=== PATIENT | male | born 1960 | race Asian ===

== ENCOUNTER 2018-10-17 19:54 | Inpatient (IN) | payer OTHER ==
[~2018-10-17] VITALS: Ht 170.2 cm; Wt 62.6 kg
[2018-10-17 20:00] VITALS: BP 135/78
--- NOTE | 2018-10-17 20:04 | NUR ---
PT TRIAGED AND SENT TO ER LOBBY. VSS
[2018-10-17] MEDS ORDERED: ACETAMINOPHEN EXTRA STRENGTH 500 MG TAB PO ONE (20:10)
--- NOTE | 2018-10-17 21:02 | NUR ---
PT AMBULATED TO BED 12
--- NOTE | 2018-10-17 21:20 | NUR ---
PT BIB SON C/O LEFT HAND PAIN AND SWELLING. PT STATED THAT HE WAS CLEANING A TILAPIA FISH YESTERDAY AND THE BONE PUNCTURED HAND; PT STATES TO "FEELING LIKE HE HAD A FEVER AND SWELLING GOT WORSE'". SWELLING, REDNESS AND WARMTH NOTED, NO DISCHARGE OR DEFORMITIES NOTED. REDIAL PULSES STRONG AND EQUAL BILATERALLY. DENIES N/V/D, CP, SOB. BREATHING UNLABORED, PATENT AIRWAY. PT IN GOWN IN BED; BED IN LOWER LOCKED POSITION, BEDRAILS UP X1. ER MADE AWARE OF PT. PMH: DENIES RX: DENIES
--- NOTE | 2018-10-17 21:45 | NUR ---
DR. SCHERER AT BEDSIDE.
[2018-10-17] MEDS ORDERED: VANCOMYCIN 1,000 MG in DEXTROSE 5% 250 ML IV ONE (21:50)
[2018-10-17] MEDS ORDERED: VANCOMYCIN 1,000 MG VIAL ONE (22:03)
[2018-10-17] MEDS ORDERED: cefTRIAXone 1,000 MG VIAL ONE (22:03)
--- NOTE | 2018-10-17 22:06 | NUR ---
LAB AT BEDSIDE.
[2018-10-17 22:19] LABS: BASOPHILS % (AUTO) 0.2 % (0.0-2.0); EOSINOPHILS # (AUTO) 0.1 K/uL (0-0.4); EOSINOPHILS % (AUTO) 0.5 % (0.0-4.0); HEMATOCRIT 41.3 % (36-52); HEMOGLOBIN 12.7 g/dL (12.0-18.0); LYMPHOCYTES # (AUTO) 1.9 K/uL (2.0-11.5); LYMPHOCYTES % (AUTO) 11.3 % (20.5-51.1); MEAN CORPUSCULAR HEMOGLOBIN 25 pg (27-31); MEAN CORPUSCULAR HGB CONC 31 g/dL (33-37); MEAN CORPUSCULAR VOLUME 80.7 fL (80-94); MONOCYTES # (AUTO) 1.9 K/uL (0.8-1.0); MONOCYTES % (AUTO) 11.4 % (1.7-9.3); NEUTROPHILS # (AUTO) 12.8 K/uL (1.8-7.7); NEUTROPHILS % (AUTO) 76.6 % (42.2-75.2); PLATELET COUNT (AUTO) 263 K/uL (140-450); RED BLOOD CELL COUNT(AUTO) 5.12 MIL/uL (4.20-6.10); RED CELL DISTRIBUTION WIDTH 13.8 % (11.6-13.7)
[2018-10-17 22:31] LABS: ANION GAP 5.9 (8-16); CARBON DIOXIDE 31.3 mmol/L (21-32); CREATININE 0.9 mg/dL (0.7-1.3); POTASSIUM 4.2 mmol/L (3.5-5.1)
[2018-10-17 22:34] LABS: ALBUMIN 3.7 g/dL (3.4-5.0); TOTAL BILIRUBIN 0.5 mg/dL (0.0-1.0)
[2018-10-17 22:52] LABS: WHITE BLOOD COUNT (AUTO) 16.7 K/uL (4.8-10.8)
[2018-10-17] MEDS ORDERED: MORPHINE SULFATE 4 MG/ML SYR IVP PRN ×2 (23:10)
[2018-10-17] MEDS ORDERED: ALBUTEROL 0.083% 2.5 MG/3 ML NEBU INH PRN (23:10)
[2018-10-17] MEDS ORDERED: LORazepam 2 MG/ML VIAL IVP PRN (23:10)
[2018-10-17] MEDS ORDERED: VANCOMYCIN PER PHARMACY MC PRN (23:10)
--- NOTE | 2018-10-18 00:35 | NUR ---
Patient will be admitted to care of Dr. Gallagher. Admited to ICU. Will go to room 3. Belongings list completed. Report to Jeanne SIDDIQUI.
[2018-10-18 00:40] VITALS: BP 128/84
[2018-10-18] MEDS ORDERED: AMPICILLIN/SULBACTAM 3 GM VIAL ONE (00:45)
--- NOTE | 2018-10-18 00:45 | NUR ---
PATIENT TRANSFERRED FROM ER TO ICU VIA W/C WITH ASSISTANCE. PATIENT AAO X 4, FRISIAN SPEAKING ONLY, UNDERSTAND SOME TAMAZIGHT. ON ROOM AIR WITH O2 SAT ABOVE 93%, BILATERAL LUNGS SOUND CLEAR. S1, S2 HEARD. NO FEVER. NO ACUTE DISTRESS NOTED. VSS. ACTIVE BOWEL SOUND FROM ALL 4 QUADS. ABLE TO MOVE ALL EX'S WITH STRONG MOVEMENT. SKIN INTACT. CELLULITIS TO LEFT HAND WITH REDNESS AND SWELLING. WARM TO TOUCH. HOB ELEVATED, BED IN LOW POSITION. CALL LIGHT WITHIN REACH. WILL CONTINUE TO MONITOR.
[2018-10-18] MEDS: AMPICILLIN/SULBACTAM 3 GM in NACL 0.9% 100 ML IV SCH ×4 (00:52→18:35)
--- NOTE | 2018-10-18 01:00 | NUR ---
ADMINISTERED IV ABX ORDERED. NO REACTION NOTED. SPOKE WITH SON; THEE HOLT/ [phone]. NOTIFIED ADMISSION. UNKNOWN FOR IMMUNIZATION STATUS. SON WILL COME IN THE MORNING. NEED TO F/U.
--- NOTE | 2018-10-18 03:10 | NUR ---
PATIENT IN ASLEEP, AROUSABLE TO NAME. NO ACUTE DISTRESS NOTED. PATIENT ABLE TO CHANGE POSITION HIMSELF. WILL CONTINUE TO MONITOR.
[2018-10-18 04:00] VITALS: BP 101/71
--- NOTE | 2018-10-18 05:05 | NUR ---
ADMINISTERED IV ABX ORDERED. NO ACUTE DISTRESS NOTED. DENIES PAIN AT THIS TIME. VSS. WILL CONTINUE TO MONITOR.
[2018-10-18 05:50] LABS: BASOPHILS % (AUTO) 0.1 % (0.0-2.0); EOSINOPHILS # (AUTO) 0.1 K/uL (0-0.4); EOSINOPHILS % (AUTO) 0.9 % (0.0-4.0); HEMATOCRIT 39.4 % (36-52); HEMOGLOBIN 12.5 g/dL (12.0-18.0); LYMPHOCYTES # (AUTO) 1.7 K/uL (2.0-11.5); LYMPHOCYTES % (AUTO) 11.8 % (20.5-51.1); MEAN CORPUSCULAR HEMOGLOBIN 25 pg (27-31); MEAN CORPUSCULAR HGB CONC 32 g/dL (33-37); MEAN CORPUSCULAR VOLUME 79.6 fL (80-94); MONOCYTES # (AUTO) 1.8 K/uL (0.8-1.0); MONOCYTES % (AUTO) 12.2 % (1.7-9.3); PLATELET COUNT (AUTO) 244 K/uL (140-450); RED BLOOD CELL COUNT(AUTO) 4.95 MIL/uL (4.20-6.10); RED CELL DISTRIBUTION WIDTH 13.9 % (11.6-13.7); WHITE BLOOD COUNT (AUTO) 14.7 K/uL (4.8-10.8)
[2018-10-18 06:49] LABS: ALBUMIN 3.3 g/dL (3.4-5.0); ANION GAP 9.2 (8-16); CARBON DIOXIDE 29.6 mmol/L (21-32); CREATININE 0.8 mg/dL (0.7-1.3); MAGNESIUM 2.1 mg/dL (1.8-2.4); PHOSPHORUS 3.1 mg/dL (2.5-4.9); POTASSIUM 3.8 mmol/L (3.5-5.1); TOTAL BILIRUBIN 0.6 mg/dL (0.0-1.0)
--- NOTE | 2018-10-18 07:35 | NUR ---
RECEIVED PT FROM ICU IN STABLE CONDITION.A&OX4.HAS EDEMA AND REDNESS ON LT.HAND.SL PATENT.ORIENTED TO ROOM.CALL SYSTEM EXPLAINED AND IN REACH.REPORT GIVRN TO JANEEN URIAS RN.PT DENIED ANY PAIN OR DISCOMFORT.
--- NOTE | 2018-10-18 07:36 | NUR ---
RECEIVED REPORT FROM CHARGE NURSE GRIS. PT TRANSFERRED FROM ICU TO MS. HAS SWOLLEN LFT HAND ON THE PALM FROM STICKING OF FISH BONE WHILE CLEANING FISH. PT SPEAKS CROATIAN ONLY. HAS RT FA 22 G, SALINE LOCK. NO SIGN OF DISTRESS. CALL LIGHT WITHIN REACH. INTRODUCED SELF AND UPDATED BOARD. INFORMED TO USE CALL LIGHT FOR ANY HELP. WILL CONTINUE TO MONITOR PT.
[2018-10-18 08:00] VITALS: BP 124/70
--- NOTE | 2018-10-18 08:24 | NUR ---
PATIENT HAS BEEN SCREENED AND CATEGORIZED LOW NUTRITION RISK. PATIENT WILL BE SEEN WITHIN 7 DAYS OF ADMISSION. 10/24/[address]
--- NOTE | 2018-10-18 10:15 | NUR ---
MD AT PTS BEDSIDE. TALKED TO SON-IN LAW CARISA REGARDING THE PROCEDURE. PT OKAY WITH IT. DR SIGNED THE SIGNED AND PT SIGNED THE CONSENT PAPER. NO QUESTION FOR THE PT. WILL CONTINUE TO MONITOR PT.
[2018-10-18] MEDS ORDERED: DOXYCYCLINE 100 MG in DEXTROSE 5% 100 ML IV SCH (10:19)
[2018-10-18] MEDS: VANCOMYCIN 1GM/DEXT 5% PREMIX 200 ML IV SCH ×2 (11:55→23:36)
--- NOTE | 2018-10-18 12:18 | NUR ---
ADMINISTERED MEDS TO PT ORDERED. DENIES ANY PAIN AT THIS TIME. NO SIGN OF DISTRESS NOTED. CALL LIGHT WITHIN REACH. INFORMED PT TO USE CALL LIGHT FOR ANY HELP. WILL CONTINUE TO MONITOR PT.
--- NOTE | 2018-10-18 14:30 | NUR ---
CHECKED ON PT, LYING ON HIS BED COMFORTABLY. PT INFORMED THAT WILL GO TO RADIOLOGY UNIT TO DO CT OF UPPER EXTREMITY WITH CONTRAST IV FORM. VERBALIZED UNDERSTANDING. NO SIGN OF DISTRESSES NOTED. ALL SAFETY MEASURE IN -PLACE. WILL CONTINUE TO MONITOR PT.
[2018-10-18 16:00] VITALS: BP 129/78
--- NOTE | 2018-10-18 16:30 | NUR ---
CALLED CT , INFORMED THAT PT IS NPO, HAS BEEN UNHOOKED FORM IV , READY FOR THE CT TEST. MUFFLER MECHANIC TO GET THE PT SOON HE GETS OFF FROM ER. NO SIGN OF DISTRESS NOTED. WILL CONTINUE TO MONITOR PT.
--- NOTE | 2018-10-18 19:21 | NUR ---
ENDORSED PT TO PM NURSE AT BEDSIDE. PT IN STABLE CONDITION.
--- NOTE | 2018-10-18 19:22 | NUR ---
RECEIVED FROM AM RN IN BED AWAKE AND ALERT. NO SOB. CALL LIGHT WITH IN REACH. CARE PLANS FOR THE NIGHT DISCUSSED WITH HIM. DENIES PAIN AT THIS TIME.
[2018-10-18] MEDS: DOXYCYCLINE 100 MG in DEXTROSE 5% 100 ML IV SCH (21:38)
[2018-10-18] MEDS ORDERED: CIPROFLOXACIN 250 MG TAB PO SCH (22:00)
--- NOTE | 2018-10-18 22:00 | NUR ---
PT. AWAKE AND ALERT AT THIS TIME TALKING TO FAMILY ON THE CELL PHONE. ENCOURAGED TO REST AND SLEEP. PT. DENIES PAIN AT THIS TIME. ABLE TO MOVE SELF. INDEPENDENT. ABLE TO USE CALL LIGHT FOR HELP. IVF SITE INFILTRATED. TIP INTACT. COVERED WITH BAND AID. RE-INSERTED IVF TO RIGHT HAND #22. GOOD BLOOD RETURN.
[2018-10-19] VITALS: BP_SYST 11; BP_SYST 117; BP_DIAS 78
--- NOTE | 2018-10-19 | NUR ---
SLEEPING. NO RESTLESSNESS NOTED. CALL LIGHT WITH IN REACH. A/O X 4. ROM X 4.
--- NOTE | 2018-10-19 02:00 | NUR ---
SLEEPING WELL. CALL LIGHT WITH IN REACH.
--- NOTE | 2018-10-19 04:00 | NUR ---
WOKE UP AND REQUESTED TO HAVE URINAL EMPTIED. DENIES PAIN. GOOD AFFECT. CALL LIGHT WITH IN REACH. NEW IVF SITE TO RIGHT HAND WITH GOOD BLOOD RETURN.
--- NOTE | 2018-10-19 07:20 | NUR ---
RECEIVED REPORT FROM PM NURSE AT BEDSIDE . PT LYING ON HIS BED. PT HAS22G IV SITE ON RT WRIST 22G. IVF INFUSING WELL. NO SIGN OF DISTRESS NOTED. CALL LIGHT WITHIN PT REACH. BED AT LOWER POSITION. INFORMED PT TO USE CALL LIGHT FOR ANY HELP. VERBALIZED UNDERSTANDING. WILL CONTINUE TO MONITOR PT.
--- NOTE | 2018-10-19 07:25 | NUR ---
ENDORSED TO THE NEXT RN FOR CONTINUITY OF CARE. AWAKE AND ALERT. NO COMPLAINTS DONE. SMILING. SLEPT WELL THIS SHIFT.
[2018-10-19 07:49] VITALS: BP 119/73
[2018-10-19] MEDS: CIPROFLOXACIN 250 MG TAB PO SCH ×2 (08:37→21:10)
[2018-10-19] MEDS: DOXYCYCLINE 100 MG in DEXTROSE 5% 100 ML IV SCH ×2 (08:37→21:10)
--- NOTE | 2018-10-19 08:46 | NUR ---
ADMINISTERED MEDS TO PA ORDERED. TOLERATED WELL. NO SIGN OF DISTRESS NOTED. ALL SAFETY MEASURE IN PLACE. WILL CONTINUE TO MONITOR PT.
--- NOTE | 2018-10-19 10:18 | NUR ---
CM NOTE PER MANDI OF [facility] PH# [phone], THE PATIENT HAS BEEN SEEING DR. DALE INSTEAD OF DR. ADAN. PER MANDI, THE PATIENT IS SCHEDULED FOR OUTPATIENT FOLLOW UP APPOINTMENT WITH DR. DALE ON OCTOBER 26, 2018, 11:00 AM, AT THE CLINIC AT [address] [facility] [place] [id number]. I GAVE THE PATIENT A COPY OF HIS OUTPATIENT FOLLOW UP SCHEDULE.
[2018-10-19] MEDS: VANCOMYCIN 1GM/DEXT 5% PREMIX 200 ML IV SCH ×2 (11:15→23:39)
--- NOTE | 2018-10-19 11:21 | NUR ---
ADMINISTERED MEDS TO PT. TOLERATED WELL. NO SIGN OF DISTRESS NOTED. CALL LIGHT WITHIN REACH. WILL CONTINUE TO MONITOR PT.
--- NOTE | 2018-10-19 14:30 | NUR ---
CHECKED ON PT. LYING IN HIS BED COMFORTABLY. NO SIGN OF DISTRESS NOTED. DENIES ANY PAIN. CALL LIGHT WITHIN PTS REACH. WILL CONTINUE TO MONITOR PT.
[2018-10-19 16:00] VITALS: BP 129/82
--- NOTE | 2018-10-19 17:00 | NUR ---
CHECKED ON PT. LYING ON HIS BED COMFORTABLY. NO SIG OF DISTRESS NOTED. CALLED SON TO FOLLOW UP TO GET UPDATE IF PT HAS RECEIVED FLU SHOT AND PNA VACCINE. LEFT VOICE MAIL. ALL SAEFTY MEASURE IN PLACE. WILL CONTINUE TO MONITOR PT.
--- NOTE | 2018-10-19 19:15 | NUR ---
ENDORSED PT TO PM NURSE AT BEDSIDE. PT IN STABLE CONDITION.
--- NOTE | 2018-10-19 19:30 | NUR ---
RECEIVED FROM AM RN IN BED AWAKE AND SMILING. DENIES PAIN. CALL LIGHT WITH IN REACH. NO SOB. IVF SITE TO RIGHT HAND #22 INTACT AND NO INFILTRATION. NO COMPLAINTS DONE. DX. LEFT HAND CELLULITIS.
--- NOTE | 2018-10-19 22:35 | NUR ---
PT. STILL AWAKE AND TALKING TO SOMEONE ON THE PHONE. SMILING. NO COMPLAINTS OF PAIN AT THIS TIME. CALL LIGHT WITH IN REACH.
[2018-10-19 23:58] VITALS: BP 142/96
--- NOTE | 2018-10-20 | NUR ---
VITAL SIGNS TAKEN. AWAKE AND ALERT. PT. URINATED IN URINAL. NO PAIN COMPLAINTS. IVF SITE IN PLACE WITH GOOD BLOOD RETURN. CALL LIGHT WITH IN REACH.
--- NOTE | 2018-10-20 03:00 | NUR ---
SLEEPING WELL. NO COMPLAINTS.
--- NOTE | 2018-10-20 06:46 | NUR ---
PT. AWAKE AND WANTED TO HAVE IVF TO LEFT HAND 22 TAKEN OUT. PER PT. IT HURTS. RECHECKED IVF SITE AND ABLE TO DRAW OUT GOOD BLOOD RETURN. STILL REFUSED TO LEAVE IT IN AND REQUESTED TO HAVE IT TAKEN OUT. STATED THAT HE MIGHT GO HOME TODAY AND DO NOT NEED THE RE-INSERTION OF A NEW ONE. EXPLAINED PROS AND CONS OF TAKING IT OUT. EXPLAINED HE STILL HAVE IV ABT. USED [employer]BONATION TESTER FOR [employer] (DOYLE) # [id number]. PT. ALSO REFUSED TO HAVE PNA VACCINE AND FLU VACCINE. PT. A/O X 4. WILL ENDORSE TO AM RN FOR CONTINUITY OF CARE.
[2018-10-20 06:50] LABS: ALBUMIN 3.3 g/dL (3.4-5.0); ANION GAP 15.1 (8-16); CARBON DIOXIDE 25.7 mmol/L (21-32); CREATININE 0.8 mg/dL (0.7-1.3); POTASSIUM 3.8 mmol/L (3.5-5.1); TOTAL BILIRUBIN 0.3 mg/dL (0.0-1.0)
[2018-10-20 06:51] LABS: RED BLOOD CELL COUNT(AUTO) 5.31 MIL/uL (4.20-6.10); WHITE BLOOD COUNT (AUTO) 9.7 K/uL (4.8-10.8)
[2018-10-20 06:52] LABS: HEMATOCRIT 42.5 % (36-52); HEMOGLOBIN 13.8 g/dL (12.0-18.0); LYMPHOCYTES % (AUTO) 24.8 % (20.5-51.1); MEAN CORPUSCULAR HEMOGLOBIN 26 pg (27-31); MEAN CORPUSCULAR HGB CONC 32 g/dL (33-37); MEAN CORPUSCULAR VOLUME 80.1 fL (80-94); PLATELET COUNT (AUTO) 279 K/uL (140-450); RED CELL DISTRIBUTION WIDTH 13.8 % (11.6-13.7)
[2018-10-20 06:53] LABS: BASOPHILS % (AUTO) 0.2 % (0.0-2.0); EOSINOPHILS # (AUTO) 0.1 K/uL (0-0.4); LYMPHOCYTES # (AUTO) 2.4 K/uL (2.0-11.5); MONOCYTES # (AUTO) 1.1 K/uL (0.8-1.0); NEUTROPHILS # (AUTO) 6.1 K/uL (1.8-7.7)
--- NOTE | 2018-10-20 07:15 | NUR ---
RECEIVED PATIENT REPORT AT BEDSIDE. PATIENT IS AWAKE, ALERT AND ORIENTED. NO S/S OF DISTRESS. LEFT HAND ERYTHEMA AND SWELLING NOTED. NO DISCHARGE NOTED. NO C/O PAIN AT THIS TIME. WILL CONTINUE TO MONITOR
[2018-10-20 08:00] VITALS: BP 152/89
--- NOTE | 2018-10-20 08:45 | NUR ---
PER DR COOPER, NO NEED TO ESTABLISH NEW IV LINE. PATIENT IS CLEARED FOR DISCHARGE
[2018-10-20] MEDS: DOXYCYCLINE 100 MG in DEXTROSE 5% 100 ML IV SCH (09:00)
[2018-10-20] MEDS ORDERED: LAC PO (09:14)
[2018-10-20] MEDS ORDERED: DOXY100C9 PO (09:14)
[2018-10-20] MEDS ORDERED: CIPR250T3 PO (09:14)
[2018-10-20] MEDS: CIPROFLOXACIN 250 MG TAB PO SCH (09:19)
[2018-10-20] MEDS: VANCOMYCIN 1GM/DEXT 5% PREMIX 200 ML IV SCH (11:00)
--- NOTE | 2018-10-20 11:30 | NUR ---
USED [employer] PLUMBING AND HEATING MECHANIC PHONE AND WAS ASSISTED BY SOFI ([id number]). DISCHARGE INSTRUCTIONS AND DISCHARGE PRESCRIPTIONS GIVEN TO THE PATIENT. PATIENT VERBALIZED UNDERSTANDING. PATIENT WAS ALSO GIVEN FOLLOW UP APPOINTMENT. PATIENT SIGNED ALL OF HIS DISCHARGE PAPERS. PER PATIENT, HE WILL BE PICKED UP BY HIS SON AROUND NOON TIME
--- NOTE | 2018-10-20 12:20 | NUR ---
PATIENT DISCHARGED TO HOME. PATIENT LEFT WITH ALL HIS BELONGINGS AND DISCHARGE PAPERS. PATIENT LEFT IN STABLE CONDITION
== END 2018-10-20 12:20 | disposition home or self-care (01) | DRG 720 ==
LOC: MED 19:54 → MIC 23:14 → MTU 10-18 07:09
PROVIDERS: ADMIT Hospitalist; ATTEND Hospitalist
DX: A41.50 Gram-negative sepsis, unspecified (principal); L03.114 Cellulitis of left upper limb
CPT/HCPCS: 36415; 73110; 73130; 73201; 80053; 80202; 83605; 83735; 84100; 85025; 87040; 87081; 96365; 96366; 96367; 99285; J0295; J0696; J1644; J3370; J3490; J7030; J7060; Q9967